=== PATIENT | female | born 1970 | race Caucasian/White ===

== ENCOUNTER 2019-07-25 17:03 | Emergency (ER) | payer BC ==
[~2019-07-25] VITALS: Ht 180.3 cm; Wt 81.6 kg
[2019-07-25 17:18] VITALS: Ht 180.3 cm; Wt 81.6 kg
[2019-07-25 18:13] LABS: CALCIUM 8.8 mg/dL (8.5-10.1); CARBON DIOXIDE 30.5 mmol/L (21-32); CHLORIDE SERUM 105 mmol/L (98-107); CREATININE SERUM 0.6 mg/dL (0.6-1.0); GFR1 > 60 mL/min; GLUCOSE SERUM 98 mg/dL (74-106); POTASSIUM SERUM 3.2 mmol/L (3.5-5.1); SODIUM SERUM 141 mmol/L (136-145)
[2019-07-25 18:14] LABS: BASOPHIL % 0.5 % (0-2); PLATELET COUNT 274 x10^3mcL (130-400); RED CELL DISTRIBUTION WIDTH 13.2 % (11.5-14.5)
[2019-07-25 18:17] LABS: ALBUMIN 4.3 g/dL (3.4-5.0); ALKALINE PHOSPHATASE 43 U/L (46-116); ALT/SGPT 23 U/L (14-59); AST/SGOT 13 U/L (15-37); BILIRUBIN TOTAL 0.43 mg/dL (0.20-1.00); LIPASE 134 IU/L (73-393); TOTAL PROTEIN, SERUM 7.3 g/dL (6.4-8.2)
[2019-07-25 22:16] VITALS: BP 106/74
== END 2019-07-25 22:16 | disposition home or self-care (01) ==
LOC: ED 17:03
PROVIDERS: Emergency Medicine
DX: E86.0 Dehydration (principal); R10.816 Epigastric abdominal tenderness; R11.2 Nausea with vomiting, unspecified; M79.7 Fibromyalgia; Z87.19 Personal history of other diseases of the digestive system; Z90.710 Acquired absence of both cervix and uterus; Z90.49 Acquired absence of other specified parts of digestive tract; Z88.5 Allergy status to narcotic agent; Z88.8 Allergy status to other drugs, medicaments and biological substances
CPT/HCPCS: J2405; J3010; J3490; J7030; Q0092

== ENCOUNTER 2020-12-20 09:50 | Emergency (ER) | payer BC ==
[~2020-12-20] VITALS: Ht 180.3 cm; Wt 85.3 kg
[2020-12-20 09:56] VITALS: Ht 180.3 cm; Wt 85.3 kg
[2020-12-20 10:38] LABS: BASOPHIL % 0.8 % (0.2-1.3); PLATELET COUNT 275 x10^3mcL (179-408); RED CELL DISTRIBUTION WIDTH 13.5 % (12.3-17.7)
[2020-12-20 10:49] LABS: CALCIUM 9.7 mg/dL (8.5-10.1); CARBON DIOXIDE 27.1 mmol/L (21-32); CHLORIDE SERUM 101 mmol/L (98-107); CREATININE SERUM 0.8 mg/dL (0.6-1.0); GFR1 > 60 mL/min; GLUCOSE SERUM 92 mg/dL (74-106); POTASSIUM SERUM 4.3 mmol/L (3.5-5.1); SODIUM SERUM 138 mmol/L (136-145)
[2020-12-20 10:53] LABS: ALBUMIN 4.6 g/dL (3.4-5.0); ALKALINE PHOSPHATASE 53 U/L (46-116); ALT/SGPT 35 U/L (14-59); AST/SGOT 23 U/L (15-37); BILIRUBIN TOTAL 0.77 mg/dL (0.20-1.00); TOTAL PROTEIN, SERUM 7.6 g/dL (6.4-8.2)
[2020-12-20 14:20] VITALS: BP 111/67
== END 2020-12-20 14:20 | disposition home or self-care (01) ==
LOC: ED 09:50
PROVIDERS: Emergency Medicine
DX: R55 Syncope and collapse (principal); Z88.5 Allergy status to narcotic agent; Z90.710 Acquired absence of both cervix and uterus; Z90.49 Acquired absence of other specified parts of digestive tract
CPT/HCPCS: 83880; 85378; Q0162; Q9967